=== PATIENT | female | born 1950 | race Caucasian/White ===

== ENCOUNTER → 2018-12-09 | Outpatient (CLI) | payer OTHER, MEDICARE ==
[~2018-12-09] MED LIST: AMBIEN 5 MG TABL5 M1 PO; CELEXA20 MG PO; HYDROCODONE-APA1 TA1 PO; NABUMETONE 500500 M1 PO; NORCO 10-325 T1 EACH PO; SKELAXIN 800 M800 M1 PO
== END ==
LOC: MRI 14:55
DX: M19.012 Primary osteoarthritis, left shoulder (principal); M25.812 Other specified joint disorders, left shoulder

== ENCOUNTER → 2019-01-12 | Outpatient (CLI) | payer OTHER, MEDICARE | LOC: MRI 11:05 | DX: M19.011 Primary osteoarthritis, right shoulder (principal); M75.101 Unspecified rotator cuff tear or rupture of right shoulder, not specified as traumatic; S43.491A Other sprain of right shoulder joint, initial encounter; X58.XXXA Exposure to other specified factors, initial encounter; Y93.89 Activity, other specified; Y92.89 Other specified places as the place of occurrence of the external cause; Y99.8 Other external cause status ==